=== PATIENT | female | born 1980 | race Caucasian/White ===

== ENCOUNTER 2016-04-16 21:01 | Emergency (ER) | payer OTHER ==
--- NOTE | ~2016-04-16 | CT52 ---
[facility] A Service of [facility] RADIOLOGY TEXT RESULTS PATIENT: YAAKOV JAVIER LOCATION: [facility] : 81 UNIT #: [id number] AGE: [address]: Jj Capone MD SEX: F ORDER DR: [id number] [facility] [address] [place], [place] [address] [id number] E MR#: [id number] Acc #: [id number] NAME: YAAKOV JAVIER : 1980 SEX: F STUDY DATE/TIME: 04/16/2016 20:45 UNIT: [facility] ROOM: STUDY DESCRIPTION: CT Cervical Spine Wo Cont Attending Physician: Jj Capone M.D. Ordering Physician: Jj Capone M.D. Primary Care Physician: No Primary Care Physician MEDICAL IMAGING REPORT This report is preliminary unless electronic signature is present EXAM Cervical spine CT 04/16/2016 2145 INDICATION Posterior neck pain after a fall today. Pain rates 9 out of 10. TECHNIQUE Axial images were obtained through the cervical spine without contrast. Multiplanar reformats were obtained. No comparison. This CT exam was performed with one or more of the following radiation dose reduction techniques: automatic exposure control, adjustment of mA and/or kV according to patient size, and iterative reconstruction. FINDINGS No fracture or subluxation is seen. Very mild broad base disc bulge is noted at C3-4. No central canal or neural foraminal stenosis is seen. The remaining intervertebral discs are normal. IMPRESSION Very mild degenerative disease at C3-4, otherwise negative cervical spine. Dictated by... Pascual Reid Jr., M.D. THIS IS AN ELECTRONICALLY VERIFIED REPORT Pascual Reid Jr., M.D. at 04/17/2016 9:29 PM ASHVIN/zacarias TD: 04/17/2016 13:40 JOB #: [id number] MEDICAL IMAGING REPORT [facility] A Service of [facility] RADIOLOGY TEXT RESULTS PATIENT: YAAKOV JAVIER LOCATION: [facility] : 82 UNIT #: [id number] AGE: [address]: Jj Capone MD SEX: F ORDER DR: DANNI
--- NOTE | ~2016-04-16 | CR173 ---
[facility] A Service of [facility] & [facility] RADIOLOGY TEXT RESULTS PATIENT: YAAKOV JAVIER LOCATION: [facility] : 82 UNIT #: [id number] AGE: [address]: Jj Capone MD SEX: F ORDER DR: [id number] [facility] [address] [place], [place] [address] [id number] E MR#: [id number] Acc #: [id number] NAME: YAAKOV JAVIER : 1980 SEX: F STUDY DATE/TIME: 04/16/2016 20:57 UNIT: [facility] ROOM: STUDY DESCRIPTION: CR Knee 3 Views Rt Attending Physician: Jj Capone M.D. Ordering Physician: Jj Capone M.D. Primary Care Physician: Primary Care Physician No MEDICAL IMAGING REPORT This report is preliminary unless electronic signature is present EXAM Right knee series, 04/16/2016 HISTORY Pain. Right ankle pain. Bruising to right knee. 12 hours ago dog pulled patient down four steps. FINDINGS AP and lateral and sunrise views right knee presented. No traumatic fracture or malalignment. No acute appearing soft tissue abnormality. No joint effusion. Dictated by... Curry Joshi M.D. THIS IS AN ELECTRONICALLY VERIFIED REPORT Curry Joshi M.D. at 04/18/2016 4:25 PM Chantell TD: 04/17/2016 14:27 JOB #: [id number] MEDICAL IMAGING REPORT COPY
--- NOTE | ~2016-04-16 | CR253 ---
[facility] A Service of [facility] & [facility] RADIOLOGY TEXT RESULTS PATIENT: YAAKOV JAVIER LOCATION: [facility] : 82 UNIT #: [id number] AGE: [address]: Jj Capone MD SEX: F ORDER DR: [id number] [facility] [address] [place], [place] [address] [id number] E MR#: [id number] Acc #: [id number] NAME: YAAKOV JAVIER. : 1980 SEX: F STUDY DATE/TIME: 04/16/2016 20:56 UNIT: [facility] ROOM: STUDY DESCRIPTION: CR Tibia and Fibula 2 Views Rt Attending Physician: Jj Capone M.D. Ordering Physician: Jj Capone M.D. Primary Care Physician: No Primary Care Physician MEDICAL IMAGING REPORT This report is preliminary unless electronic signature is present EXAM Tibia-fibula series 04/16/2016 HISTORY Pain. Right ankle pain. Bruising to right knee 12 hours ago. Dog pulled patient down 4 steps. FINDINGS AP and lateral radiographs of the right tibia and fibula are presented. The study reviewed with right ankle series. The distal fibula is not visualized on the lateral view, but is well seen on ankle series. No fracture or traumatic malalignment. Knee and ankle joints appear intact. No soft tissue defects, subcutaneous air, or radiodense foreign body. Dictated by... Curry Joshi M.D. THIS IS AN ELECTRONICALLY VERIFIED REPORT Curry Joshi M.D. at 04/18/2016 4:25 PM JAYY/zacarias TD: 04/17/2016 14:29 JOB #: [id number] MEDICAL IMAGING REPORT COPY
--- NOTE | ~2016-04-16 | CR21 ---
[facility] A Service of [facility] & [facility] RADIOLOGY TEXT RESULTS PATIENT: YAAKOV JAVIER LOCATION: [facility] : 82 UNIT #: [id number] AGE: [address]: Jj Capone MD SEX: F ORDER DR: [id number] [facility] [address] [place], [place] [address] [id number] E MR#: [id number] Acc #: [id number] NAME: YAAKOV JAVIER. : 1980 SEX: F STUDY DATE/TIME: 04/16/2016 20:55 UNIT: [facility] ROOM: STUDY DESCRIPTION: CR Ankle Min 3 Views Rt Attending Physician: Jj Capone M.D. Ordering Physician: Jj Capone M.D. Primary Care Physician: No Primary Care Physician MEDICAL IMAGING REPORT This report is preliminary unless electronic signature is present EXAM Right ankle series 04/16/2016 HISTORY Pain, right ankle pain, bruising to right knee 12 hours ago. Dog pulled patient down 4 steps. FINDINGS AP, lateral, and oblique radiographs of the right ankle show normal bony mineralization. No traumatic fracture or malalignment. Ankle mortise joint intact. No soft tissue defect, subcutaneous air, or radiodense foreign body. No joint effusion suggested. Dictated by... Curry Joshi M.D. THIS IS AN ELECTRONICALLY VERIFIED REPORT Curry Joshi M.D. at 04/18/2016 4:25 PM JAYY/zacarias TD: 04/17/2016 14:25 JOB #: [id number] MEDICAL IMAGING REPORT COPY
--- NOTE | ~2016-04-16 | CR151 ---
[facility] A Service of [facility] & [facility] RADIOLOGY TEXT RESULTS PATIENT: YAAKOV JAVIER LOCATION: [facility] : 82 UNIT #: [id number] AGE: [address]: Jj Capone MD SEX: F ORDER DR: [id number] [facility] [address] [place], [place] [address] [id number] E MR#: [id number] Acc #: [id number] NAME: YAAKOV JAVIER : 1980 SEX: F STUDY DATE/TIME: 04/16/2016 21:04 UNIT: [facility] ROOM: STUDY DESCRIPTION: CR Hip Min 2 Views Rt Attending Physician: Jj Capone M.D. Ordering Physician: Jj Capone M.D. Primary Care Physician: No Primary Care Physician MEDICAL IMAGING REPORT This report is preliminary unless electronic signature is present EXAM Right hip 2 views HISTORY Hip pain after a fall down stairs today. FINDINGS AP and oblique examination of the hip shows adequate mineralization of the bones and a normal anatomic relationship of the femoral head with the acetabulum. There are no hypertrophic changes, fractures, dislocation, or joint capsular distension. No radiopaque foreign body is present about the soft tissues of the hip. IMPRESSION Normal hip. Dictated by... Max Boo M.D. THIS IS AN ELECTRONICALLY VERIFIED REPORT Max Boo M.D. at 04/17/2016 1:59 PM DFL/zacarias TD: 04/17/2016 13:39 JOB #: [id number] MEDICAL IMAGING REPORT COPY
[~2016-04-16 21:01] MED LIST: ALBUTEROL17 GM INH; DICLOFENAC PO; FAMOTIDINE PO; FLEXERIL10 M1 PO; IBUPROFEN PO; IMODIUM2 MG PO; MEDROL DOSEPAK4 MG PO; NAPROSYN500 MG PO; PHENERGAN25 MG PO; VOLTAREN75 MG PO; ZOFRAN ODT4 MG PO
== END 2016-04-16 22:44 | disposition home or self-care (01) ==
LOC: CFTX 21:01
DX: S93.402A Sprain of unspecified ligament of left ankle, initial encounter (principal); S39.012A Strain of muscle, fascia and tendon of lower back, initial encounter; S16.1XXA Strain of muscle, fascia and tendon at neck level, initial encounter; S70.01XA Contusion of right hip, initial encounter; F17.200 Nicotine dependence, unspecified, uncomplicated; F41.9 Anxiety disorder, unspecified; Z88.0 Allergy status to penicillin; Z88.2 Allergy status to sulfonamides; Z88.1 Allergy status to other antibiotic agents; W18.40XA Slipping, tripping and stumbling without falling, unspecified, initial encounter; Y92.9 Unspecified place or not applicable
CPT/HCPCS: 72125; 73502; 73562; 73590; 73610; 99284

== ENCOUNTER 2016-06-12 10:11 | Emergency (ER) | payer OTHER ==
--- NOTE | ~2016-06-12 | CT4 ---
[facility] A Service of [facility] & [facility] RADIOLOGY TEXT RESULTS PATIENT: YAAKOV JAVIER LOCATION: [facility] : 82 UNIT #: [id number] AGE: [address]: Sybil López SEX: F ORDER DR: [id number] [facility] [address] [place], [place] [address] [id number] E MR#: [id number] Acc #: [id number] NAME: YAAKOV JAVIER. : 1980 SEX: F STUDY DATE/TIME: 06/12/2016 11:44 UNIT: [facility] ROOM: STUDY DESCRIPTION: CT Abd and Pelv Wo Cont Attending Physician: Sybil López P.A.-C. Ordering Physician: Sybil López P.A.-C. Primary Care Physician: Primary Care Physician No MEDICAL IMAGING REPORT This report is preliminary unless electronic signature is present EXAM CT abdomen and pelvis without contrast dated 06/12/2016 COMPARISON Acute abdominal series dated 01/06/2012 HISTORY Right lower quadrant pain, nausea and vomiting for [address] exam was performed with one or more of the following radiation dose reduction techniques: automatic exposure control, adjustment of mA and/or kV according to patient size, and iterative reconstruction. FINDINGS CT of the abdomen and pelvis were obtained without IV or oral contrast in the axial plane followed by sagittal and coronal reformats. LOWER CHEST: Minimal dependent atelectatic lung changes are noted without pleural effusion, pneumothorax or lung mass. Heart is of normal size. ABDOMEN: No renal stone, hydronephrosis, ureteral stone or hydroureters. Lack of IV contrast limits evaluation of solid organs. No obvious contour deforming mass is seen. Liver, spleen, adrenal glands, pancreas, aorta do not demonstrate any significant abnormality. Gallbladder is not seen and is in keeping with cholecystectomy. Lack of oral contrast limits evaluation of the hollow organs. Grossly no bowel obstruction, free fluid or free air intraperitoneally. Appendix is within normal limits. Tiny fatty umbilical hernia is seen. Spine is unremarkable. PELVIS: Urinary bladder is completely decompressed. No obvious calcification is noted in its region to suggest stones. Age-appropriate uterus is seen. Bowel loops are unremarkable. [facility] A Service of [facility] & [facility] RADIOLOGY TEXT RESULTS PATIENT: YAAKOV JAVIER LOCATION: [facility] : 82 UNIT #: [id number] AGE: [address]: Sybil López SEX: F ORDER DR: IMPRESSION 1. No acute abnormality in the abdomen or pelvis. 2. Appendix is within normal limits. Dictated by... Job Michel M.D. THIS IS AN ELECTRONICALLY VERIFIED REPORT Job Michel M.D. at 06/13/2016 3:21 PM CPR/mike TD: 06/12/2016 14:00 JOB #: [id number] MEDICAL IMAGING REPORT Page 1 of 1 COPY
[2016-06-12 10:27] LABS: BASOPHIL% 0.4 % (0-2.5); EOSINOPHIL# 0.1 X10e3 (0-0.7); EOSINOPHIL% 0.6 % (0.0-7.0); HEMATOCRIT 43.1 % (35.0-45.0); HEMOGLOBIN 14.6 gm/dL (12.0-16.0); LYMPHOCYTE# 1.8 X10e3 (1.0-3.5); LYMPHOCYTE% 14.2 % (17.0-45.0); MEAN CELL VOLUME 95.2 FL (83-96); MEAN CORPUSCULAR HEMOGLOBIN 32.3 PG (28-34); MEAN CORPUSCULAR HGB CONC 33.9 g/dL (30-36); MEAN PLATELET VOLUME 9.3 FL (6.5-11.5); MONOCYTE# 0.6 X10e3 (0-1.0); NEUTROPHIL# 10.2 X10e3 (1.5-7.1); NEUTROPHIL% 79.8 % (40-75); PLATELET COUNT 276 X10e3 (140-420); RED BLOOD COUNT 4.52 X10e (3.90-5.30); RED CELL DISTRIBUTION WIDTH 12.6 % (11.0-15.5); WHITE BLOOD COUNT 12.8 X10e3 (4.0-10.5)
[2016-06-12 10:29] LABS: DIFF IND NO
[2016-06-12 10:53] LABS: ALBUMIN SERUM 3.8 g/dL (3.5-5.0); BILIRUBIN, DIRECT 0.1 mg/dL (0.0-0.2); BILIRUBIN,INDIRECT 0.6 mg/dL (0.0-0.9); BILIRUBIN,TOTAL 0.7 mg/dL (0.2-2.0); CALCIUM SERUM 8.6 mg/dL (8.4-10.2); CREATININE SERUM 0.5 mg/dL (0.6-1.4); GLOM FILT RATE Estimated 125.4 mL/min (>60); POTASSIUM 3.3 mmol/L (3.5-5.1); PROTEIN TOTAL SERUM 6.9 g/dL (6.0-8.3)
[2016-06-12 11:52] LABS: URINE SOURCE CLEAN CATCH
[2016-06-12 12:00] LABS: URINE APPEARANCE TURBID; URINE BLOOD NEG (NEG); URINE COLOR DK YELLOW; URINE GLUCOSE NEG (NEG); URINE KETONE TRACE (NEG); URINE LEUKOCYTE ESTERASE 2+ (NEG); URINE NITRATE NEG (NEG); URINE PROTEIN 1+ (NEG); URINE SPECIFIC GRAVITY 1.033 (1.003-1.035)
[2016-06-12 12:10] LABS: CULTURE INDICATED? YES; URINE BACTERIA AUWI 4+ (NEGATIVE); URINE SQUAMOUS EPITHELIAL CELL MANY /[HPF]; UWBCS1 AUWI 25-50 (0-5)
[2016-06-12 12:22] LABS: URINE BILIRUBIN NEG (NEG)
[2016-06-12 12:23] LABS: U HYALINE CASTS AUWI 0-2 /[LPF]
== END 2016-06-12 13:13 | disposition home or self-care (01) ==
LOC: CED 10:11
PROVIDERS: Physician Assistant
DX: N30.00 Acute cystitis without hematuria (principal); J45.909 Unspecified asthma, uncomplicated; F41.9 Anxiety disorder, unspecified; Z90.49 Acquired absence of other specified parts of digestive tract; F17.210 Nicotine dependence, cigarettes, uncomplicated; Z79.899 Other long term (current) drug therapy; Z88.0 Allergy status to penicillin; Z88.2 Allergy status to sulfonamides; Z88.8 Allergy status to other drugs, medicaments and biological substances
CPT/HCPCS: 36415; 74176; 80048; 80076; 81003; 82150; 83690; 85025; 87086; 96361; 96374; 96375; 99284; J0696; J1885; J2405

== ENCOUNTER 2016-07-31 19:06 | Emergency (ER) | payer BC, OTHER ==
--- NOTE | ~2016-07-31 | CR173 ---
[facility] A Service of [facility] & [facility] RADIOLOGY TEXT RESULTS PATIENT: YAAKOV JAVIER LOCATION: [facility] : 81 UNIT #: [id number] AGE: [address]: VITALIY PAGAN APRN SEX: F ORDER DR: [id number] [facility] [address] [place], [place] [address] [id number] E MR#: [id number] Acc #: [id number] NAME: YAAKOV JAVIER : 1980 SEX: F STUDY DATE/TIME: 07/31/2016 19:56 UNIT: [facility] ROOM: STUDY DESCRIPTION: CR Knee 3 Views Rt Attending Physician: Vitaliy Pagan Aprn Ordering Physician: Ed Doctor [id number] [facility] Primary Care Physician: Primary Care Physician No MEDICAL IMAGING REPORT This report is preliminary unless electronic signature is present EXAM Right knee 3 views HISTORY Knee pain and swelling after a fall today. FINDINGS AP and lateral projection of the knee shows smooth articular anatomy without indication of fracture or dislocation at the major weight-bearing surface of the knee. There is no indication of radiopaque foreign body about the knee surface or joint effusion. IMPRESSION Normal right knee. Dictated by... Max Boo M.D. THIS IS AN ELECTRONICALLY VERIFIED REPORT Max Boo M.D. at 08/01/2016 3:12 PM Lluvia TD: 08/01/2016 08:14 JOB #: [id number] MEDICAL IMAGING REPORT Page 1 of 1 COPY
== END 2016-07-31 21:45 | disposition home or self-care (01) ==
LOC: CED 19:06
DX: S83.91XA Sprain of unspecified site of right knee, initial encounter (principal); F41.9 Anxiety disorder, unspecified; J45.909 Unspecified asthma, uncomplicated; F17.210 Nicotine dependence, cigarettes, uncomplicated; Z90.49 Acquired absence of other specified parts of digestive tract; Z98.51 Tubal ligation status; I09.9 Rheumatic heart disease, unspecified; X58.XXXA Exposure to other specified factors, initial encounter; Y92.009 Unspecified place in unspecified non-institutional (private) residence as the place of occurrence of the external cause
CPT/HCPCS: 29505; 73562; 96372; 99283; J1885

== ENCOUNTER 2016-08-14 20:45 | Emergency (ER) | payer BC, OTHER | END 2016-08-14 22:08 | disposition home or self-care (01) | LOC: CFTX 20:45 → CED 20:45 → CFTX 21:48 | DX: M23.92 Unspecified internal derangement of left knee (principal); F17.200 Nicotine dependence, unspecified, uncomplicated; Z88.0 Allergy status to penicillin; Z88.1 Allergy status to other antibiotic agents; Z88.5 Allergy status to narcotic agent; Z88.2 Allergy status to sulfonamides | CPT/HCPCS: 84703; 99283 ==

== ENCOUNTER 2016-09-10 02:25 | Emergency (ER) | payer BC, OTHER ==
[~2016-09-10] VITALS: Ht 162.6 cm; Wt 90.7 kg
--- NOTE | ~2016-09-10 | CR63 ---
[facility] A Service of [facility] & [facility] RADIOLOGY TEXT RESULTS PATIENT: YAAKOV JAVIER LOCATION: [facility] : 82 UNIT #: [id number] AGE: [address]: Compa Barker MD SEX: F ORDER DR: [id number] [facility] [address] [place], [place] [address] [id number] E MR#: [id number] Acc #: [id number] NAME: YAAKOV JAVIER : 1980 SEX: F STUDY DATE/TIME: 09/10/2016 5:21 UNIT: [facility] ROOM: STUDY DESCRIPTION: CR Chest 2 View Attending Physician: Compa Barker M.D. Ordering Physician: Compa Barker M.D. Primary Care Physician: No Primary Care Physician MEDICAL IMAGING REPORT This report is preliminary unless electronic signature is present EXAM PA and lateral chest. DATE 09/10/2016 HISTORY Right side chest and rib pain radiating to the back since yesterday. No documented injury. COMPARISON CT chest and AP portable chest, 09/07/2016. FINDINGS No acute airspace disease. Heart size within normal limits. No pleural effusion, pneumothorax, or acute osseous abnormality. IMPRESSION 1. No acute cardiopulmonary findings. Dictated by... Cari Maradiaga M.D. THIS IS AN ELECTRONICALLY VERIFIED REPORT Cari Maradiaga M.D. at 09/10/2016 9:41 PM Loyd TD: 09/10/2016 20:51 JOB #: [id number] MEDICAL IMAGING REPORT Page 1 of 1 COPY
--- NOTE | ~2016-09-10 | EKG ---
PATIENT: YAAKOV JAVIER UNIT #: [id number] Ventricular Rate: 79 BPM Atrial Rate: 79 BPM P-R Interval: 176 ms QRS Duration: 82 ms Q-T Interval: 390 ms QTC Calculation(Bezet): 447 ms P [place]: 49 degrees Calculated R [place]: 30 degrees Calculated T [place]: 36 degrees Diagnosis Line: Normal sinus rhythm Diagnosis Line: Normal ECG Diagnosis Line: When compared with ECG of 03-JUL-2014 13:52, Diagnosis Line: No significant change was found Diagnosis Line: Confirmed by MIREYA NAPIER MD ([id number]) on Diagnosis Line: 09/12/2016 8:54:59 AM INTERPRETING MD: QUYEN LANDIN
[2016-09-10 03:41] LABS: POC - CKMB <1.0 ng/mL (0.0-7.9); POC - TROPONIN <0.05 ng/mL (<=0.05)
[2016-09-10 04:13] LABS: URINE SOURCE CLEAN CATCH
[2016-09-10 04:16] LABS: BASOPHIL% 0.3 % (0-2.5); EOSINOPHIL# 0.3 X10e3 (0-0.7); EOSINOPHIL% 2.5 % (0.0-7.0); HEMATOCRIT 40.9 % (35.0-45.0); HEMOGLOBIN 13.9 gm/dL (12.0-16.0); LYMPHOCYTE# 4.1 X10e3 (1.0-3.5); LYMPHOCYTE% 35.1 % (17.0-45.0); MEAN CELL VOLUME 96.4 FL (83-96); MEAN CORPUSCULAR HEMOGLOBIN 32.7 PG (28-34); MEAN PLATELET VOLUME 9.5 FL (6.5-11.5); MONOCYTE# 1.1 X10e3 (0-1.0); MONOCYTE% 9.1 % (3.0-12.0); NEUTROPHIL# 6.2 X10e3 (1.5-7.1); PLATELET COUNT 257 X10e3 (140-420); RED BLOOD COUNT 4.24 X10e (3.90-5.30); WHITE BLOOD COUNT 11.6 X10e3 (4.0-10.5)
[2016-09-10 04:18] LABS: URINE APPEARANCE CLEAR; URINE BILIRUBIN NEG (NEG); URINE BLOOD NEG (NEG); URINE COLOR YELLOW; URINE GLUCOSE NEG (NEG); URINE KETONE NEG (NEG); URINE LEUKOCYTE ESTERASE NEG (NEG); URINE NITRATE NEG (NEG); URINE PH 6.5 (5-8); URINE PROTEIN NEG (NEG); URINE SPECIFIC GRAVITY 1.015 (1.003-1.035); URINE UROBILINOGEN 0.2 MG/DL (NEG)
[2016-09-10 04:29] LABS: AMPHETAMINE NEG (NEG); BARBITURATES NEG (NEG); BENZODIAZEPINES NEG (NEG); COCAINE NEG (NEG); MARIJUANA NEG (NEG); OPIATES NEG (NEG); TRICYCLIC ANTIDEPRESSANTS NEG (NEG); U METHADONE NEG (NEG)
[2016-09-10 04:36] LABS: DIFF IND NO
[2016-09-10 04:41] LABS: CULTURE INDICATED? NO
[2016-09-10 04:43] LABS: INR 0.9; PARTIAL THROMBOPLASTIN TIME 27.1 SECONDS (23.5-31.3); PROTHROMBIN TIME (PATIENT) 10.3 SECONDS (10.0-11.7)
[2016-09-10 04:45] LABS: CALCIUM SERUM 8.7 mg/dL (8.4-10.2); CREATININE SERUM 0.5 mg/dL (0.6-1.4); GLOM FILT RATE Estimated 125.4 mL/min (>60); POTASSIUM 3.9 mmol/L (3.5-5.1)
== END 2016-09-10 06:05 | disposition home or self-care (01) ==
LOC: CED 02:25
PROVIDERS: Emergency Medicine
DX: M54.6 Pain in thoracic spine (principal); F41.9 Anxiety disorder, unspecified; Z90.49 Acquired absence of other specified parts of digestive tract; Z98.51 Tubal ligation status; F17.200 Nicotine dependence, unspecified, uncomplicated; Z88.0 Allergy status to penicillin; Z88.2 Allergy status to sulfonamides; Z88.8 Allergy status to other drugs, medicaments and biological substances
CPT/HCPCS: 36415; 71020; 80048; 80307; 81003; 82553; 84484; 84703; 85025; 85379; 85610; 85730; 93005; 96374; 96375; 99284; J1885; J2270; J2405

== ENCOUNTER 2016-10-03 15:07 | Emergency (ER) | payer BC, OTHER ==
[~2016-10-03] VITALS: Ht 162.6 cm; Wt 90.7 kg
== END 2016-10-03 15:40 | disposition home or self-care (01) ==
LOC: CED 15:07 → CFTX 15:07
DX: G56.01 Carpal tunnel syndrome, right upper limb (principal); M70.88 Other soft tissue disorders related to use, overuse and pressure other site; Z90.49 Acquired absence of other specified parts of digestive tract; F17.210 Nicotine dependence, cigarettes, uncomplicated; Z88.0 Allergy status to penicillin; Z88.2 Allergy status to sulfonamides; Z88.8 Allergy status to other drugs, medicaments and biological substances
CPT/HCPCS: 29125; 99283

== ENCOUNTER 2016-10-29 02:07 | Emergency (ER) | payer OTHER ==
--- NOTE | ~2016-10-29 | CT2 ---
[facility] A Service of [facility] & [facility] RADIOLOGY TEXT RESULTS PATIENT: YAAKOV JAVIER LOCATION: [facility] : 82 UNIT #: [id number] AGE: [address]: Pascual Carrizales MD SEX: F ORDER DR: [id number] [facility] [address] [place], [place] [address] [id number] E MR#: [id number] Acc #: [id number] NAME: YAAKOV JAVIER. : 1980 SEX: F STUDY DATE/TIME: 10/29/2016 4:11 UNIT: [facility] ROOM: STUDY DESCRIPTION: CT Abd and Pelv W Cont Attending Physician: Pascual Carrizales M.D. Ordering Physician: Pascual Carrizales M.D. Primary Care Physician: No Primary Care Physician MEDICAL IMAGING REPORT This report is preliminary unless electronic signature is present EXAM CT abdomen and pelvis with contrast, 10/29/2016. HISTORY 36-year-old female in the ED complaining of 3-day history of right lower quadrant abdominal pain. Nausea, vomiting and diarrhea. TECHNIQUE This CT exam was performed with one or more of the following radiation dose reduction techniques: automatic exposure control, adjustment of mA and/or kV according to patient size, and iterative reconstruction. FINDINGS ABDOMEN FINDINGS: Cholecystectomy. No bile duct dilatation. Liver, pancreas, spleen and kidneys are normal in size and appearance. Normal-caliber abdominal aorta. Mild segmental wall thickening involving the rectosigmoid colon and lower descending colon suggesting potential mild acute colitis. Small bowel and colon are otherwise normal in caliber and appearance. Normal appendix. PELVIS FINDINGS: Uterus, ovaries, urinary bladder and the low rectum are within normal limits. No inguinal hernia or abdominal wall hernia. Limited lung base images show no active disease in the lower chest. IMPRESSION 1. Mild wall thickening involving the sigmoid and lower descending colon suggesting mild acute colitis. Small bowel and colon are otherwise normal in caliber and appearance. Normal appendix. 2. The remainder of the examination is negative. 3. Cholecystectomy. [facility] A Service [facility] RADIOLOGY TEXT RESULTS PATIENT: YAAKOV JAVIER LOCATION: [facility] : 82 UNIT #: [id number] AGE: [address]: Pascual Carrizales MD SEX: F ORDER DR: Dictated by... Nelson Chavez M.D. THIS IS AN ELECTRONICALLY VERIFIED REPORT Nelson Chavez M.D. at 10/30/2016 6:05 AM LESLEE/remy TD: 10/30/2016 00:54 JOB #: [id number] MEDICAL IMAGING REPORT Page 1 of 1 COPY
[2016-10-29 02:50] LABS: URINE SOURCE CLEAN CATCH
[2016-10-29 02:58] LABS: BASOPHIL% 0.2 % (0-2.5); EOSINOPHIL# 0.2 X10e3 (0-0.7); EOSINOPHIL% 2.2 % (0.0-7.0); HEMATOCRIT 42.2 % (35.0-45.0); HEMOGLOBIN 14.6 gm/dL (12.0-16.0); LYMPHOCYTE# 3.4 X10e3 (1.0-3.5); LYMPHOCYTE% 33.9 % (17.0-45.0); MEAN CELL VOLUME 95.3 FL (83-96); MEAN CORPUSCULAR HEMOGLOBIN 32.9 PG (28-34); MEAN CORPUSCULAR HGB CONC 34.5 g/dL (30-36); MEAN PLATELET VOLUME 9.3 FL (6.5-11.5); MONOCYTE# 0.8 X10e3 (0-1.0); MONOCYTE% 7.8 % (3.0-12.0); NEUTROPHIL# 5.6 X10e3 (1.5-7.1); NEUTROPHIL% 55.9 % (40-75); PLATELET COUNT 303 X10e3 (140-420); RED BLOOD COUNT 4.43 X10e (3.90-5.30); RED CELL DISTRIBUTION WIDTH 12.8 % (11.0-15.5); WHITE BLOOD COUNT 9.9 X10e3 (4.0-10.5)
[2016-10-29 02:59] LABS: DIFF IND NO
[2016-10-29 03:00] LABS: URINE APPEARANCE CLEAR; URINE BILIRUBIN NEG (NEG); URINE BLOOD 3+ (NEG); URINE COLOR ORANGE; URINE GLUCOSE NEG (NEG); URINE KETONE NEG (NEG); URINE LEUKOCYTE ESTERASE 1+ (NEG); URINE NITRATE NEG (NEG); URINE PH 7.5 (5-8); URINE PROTEIN TRACE (NEG); URINE SPECIFIC GRAVITY 1.014 (1.003-1.035)
[2016-10-29 03:03] LABS: URBCS1 AUWI INNUM /[HPF] (0-2); URINE BACTERIA AUWI NEG (NEGATIVE); URINE SQUAMOUS EPITHELIAL CELL OCC /[HPF]
[2016-10-29 03:29] LABS: ALBUMIN SERUM 3.9 g/dL (3.5-5.0); BILIRUBIN, DIRECT 0.1 mg/dL (0.0-0.2); BILIRUBIN,INDIRECT 0.3 mg/dL (0.0-0.9); BILIRUBIN,TOTAL 0.4 mg/dL (0.2-2.0); CALCIUM SERUM 8.6 mg/dL (8.4-10.2); CREATININE SERUM 0.6 mg/dL (0.6-1.4); GLOM FILT RATE Estimated 118.1 mL/min (>60); PROTEIN TOTAL SERUM 7.1 g/dL (6.0-8.3)
== END 2016-10-29 05:20 | disposition home or self-care (01) ==
LOC: CED 02:07
PROVIDERS: Emergency Medicine
DX: N92.0 Excessive and frequent menstruation with regular cycle (principal); F41.9 Anxiety disorder, unspecified; Z90.49 Acquired absence of other specified parts of digestive tract; F17.200 Nicotine dependence, unspecified, uncomplicated; Z88.0 Allergy status to penicillin; Z88.2 Allergy status to sulfonamides; Z88.1 Allergy status to other antibiotic agents
CPT/HCPCS: 36415; 74177; 80048; 80076; 81003; 82150; 83690; 84703; 85025; 96361; 96374; 96375; 99284; J1885; J2550; Q9967